=== PATIENT | female | born 1985 | race Two or more races ===

== ENCOUNTER 2020-02-01 06:20 | Outpatient (CLI) | payer OTHER | END 2020-02-01 06:29 | disposition home or self-care (01) | LOC: LAB 06:20 | PROVIDERS: ATTEND Surgery Plastic and Reconstructive Surgery | DX: Z03.818 Encounter for observation for suspected exposure to other biological agents ruled out (principal) ==

== ENCOUNTER → 2020-08-02 09:01 | Outpatient (CLI) | payer OTHER | END | disposition home or self-care (01) | LOC: LAB 09:01 | DX: Z13.29 Encounter for screening for other suspected endocrine disorder (principal); E34.9 Endocrine disorder, unspecified ==